=== PATIENT | female | born 1935 | race Caucasian/White ===

== ENCOUNTER 2016-09-03 15:00 | Inpatient (IN) ==
[2016-09-03 17:15] LABS: Appearance,Urine CLOUDY; Bilirubin,Urine NEG (NEG); Color,Urine YELLOW; Glucose,Urine (UA) NEGATIVE (NEG); Leukocyte Esterase,Urine NEG /uL (NEG); Nitrate,Urine NEG (NEG); Protein,Urine NEG (NEG); Specific Gravity,Urine 1.011 (1.000-1.035); Urine Blood NEG mg/dL (<0.03); Urobilinogen,Urine NEG (NEG)
[2016-09-03 17:30] LABS: Basophils # (Auto) 0.1 K/mcL (0.0-0.3); Basophils % (Auto) 1.2 % (0.0-2.0); Eosinophils # (Auto) 0.1 K/mcL (0.0-0.7); Eosinophils % (Auto) 2.8 % (0.0-7.0); Granulocytes % (Auto) 46.5 % (38.0-78.0); Lymphocytes # (Auto) 1.9 K/mcL (1.5-4.8); Lymphocytes % (Auto) 35.4 % (15.5-49.0); Mean Cell Volume 104.3 fL (80.0-100.0); Mean Corpuscular HGB Conc 32.6 g/dL (31.0-36.0); Monocytes # (Auto) 0.7 K/mcL (0.1-0.9); Monocytes % (Auto) 14.1 % (1.0-9.0); Platelet Count 721 K/mcL (140-440); RBC 3.79 M/mcL (4.00-5.20); Red Cell Distribution Width 13.9 % (11.5-14.5)
[2016-09-03 17:36] LABS: Blood Urea Nitrogen 16 mg/dl (8-23)
[2016-09-07] MEDS ORDERED: CELECOXIB 200 MG CAPSULE PO SCH (05:00)
[2016-09-07] MEDS ORDERED: oxyCODONE 10 MG TAB.ER.12H PO SCH (05:00)
[2016-09-07] MEDS ORDERED: ACETAMINOPHEN 500 MG TABLET PO SCH (05:00)
[2016-09-07] MEDS ORDERED: PREGABALIN 150 MG CAPSULE PO SCH (05:00)
[2016-09-07] MEDS ORDERED: KETOROLAC 30 MG, ROPIVACAINE HCL/PF 49.5 ML, EPINEPHrine 0.5 MG, 0.9 % SODIUM CHLORIDE ... IJ SCH (06:30)
[2016-09-07] MEDS: ceFAZolin 1 GM VIAL IV SCH ×3 (12:24→21:38)
[2016-09-07] MEDS ORDERED: TRANEXAMIC ACID 1,000 MG/10 ML VIAL IV ONE ×2 (12:35→14:14)
[2016-09-07] MEDS ORDERED: PROPOFOL 200 MG/20 ML VIAL IV ONE (12:35)
[2016-09-07] MEDS ORDERED: MIDAZOLAM 5 MG/5 ML VIAL IV ONE (12:35)
[2016-09-07] MEDS ORDERED: LIDOCAINE HCL/PF 100 MG/5 ML SYRINGE IV ONE (12:35)
[2016-09-07] MEDS ORDERED: DEXAMETHASONE 10 MG/ML VIAL IV ONE (12:35)
[2016-09-07] MEDS ORDERED: ROPIVACAINE HCL/PF 30 ML VIAL IJ ONE (12:35)
[2016-09-07] MEDS ORDERED: PHENYLEPHRINE 10 MG/ML VIAL IV ONE (12:35)
[2016-09-07] MEDS ORDERED: ONDANSETRON 4 MG/2 ML VIAL IV ONE (12:35)
[2016-09-07] MEDS ORDERED: ePHEDrine 50 MG/ML AMPUL IV ONE (12:35)
[2016-09-07] MEDS ORDERED: GLYCOPYRROLATE 0.2 MG/ML VIAL IV ONE (12:35)
[2016-09-07] MEDS ORDERED: GENTAMICIN SULFATE 800 MG/20 ML VIAL IR ONE (13:05)
[2016-09-07] MEDS ORDERED: METHOCARBAMOL 1,000 MG/10 ML VIAL IV PRN (13:48)
[2016-09-07] MEDS ORDERED: METOPROLOL TARTRATE 5 MG/5 ML VIAL IV PRN (13:48)
[2016-09-07] MEDS ORDERED: diphenhydrAMINE 50 MG/ML VIAL IV PRN (13:48)
[2016-09-07] MEDS ORDERED: NALOXONE HCL 0.4 MG/ML VIAL IV PRN (13:48)
[2016-09-07] MEDS ORDERED: ePHEDrine 50 MG/ML AMPUL IV PRN (13:48)
[2016-09-07] MEDS ORDERED: ATROPINE SULFATE 0.4 MG/ML VIAL IV PRN (13:48)
[2016-09-07] MEDS ORDERED: fentaNYL 100 MCG/2 ML VIAL IV PRN (13:48)
[2016-09-07] MEDS ORDERED: FLUMAZENIL 0.1 MG/ML ML IV PRN (13:48)
[2016-09-07] MEDS ORDERED: HYDROmorphone 2 MG/ML SYRINGE IV PRN ×2 (13:48→14:14)
[2016-09-07] MEDS ORDERED: ONDANSETRON 4 MG/2 ML VIAL IV PRN ×2 (13:48→14:14)
[2016-09-07] MEDS ORDERED: BENZOCAINE/MENTHOL 1 LOZENGE PO PRN ×2 (13:48→14:14)
[2016-09-07] MEDS ORDERED: IPRATROPIUM/ALBUTEROL 3 ML AMPUL.NEB NEB PRN (13:48)
[2016-09-07] MEDS ORDERED: PROMETHAZINE 25 MG/ML VIAL IV PRN (13:48)
[2016-09-07] MEDS ORDERED: MEPERIDINE 25 MG/ML SYRINGE IV PRN (13:48)
[2016-09-07] MEDS ORDERED: LACTATED RINGERS 1,000 ML IV SCH (14:00)
[2016-09-07] MEDS ORDERED: FLEETS ADULT ENEMA PR PRN (14:14)
[2016-09-07] MEDS ORDERED: TEMAZEPAM 15 MG CAPSULE PO PRN (14:14)
[2016-09-07] MEDS ORDERED: ACETAMINOPHEN 325 MG TABLET PO PRN (14:14)
[2016-09-07] MEDS ORDERED: MAGNESIUM HYDROXIDE 30 ML ORAL.SUSP PO PRN (14:14)
[2016-09-07] MEDS ORDERED: BISACODYL 10 MG SUPP.RECT PR PRN (14:14)
[2016-09-07] MEDS ORDERED: HYDROcodone/APAP 10/325MG TABLET PO PRN (14:14)
[2016-09-07] MEDS ORDERED: POLYETHYLENE GLYCOL 3350 17 GM PACKET PO PRN (14:14)
--- NOTE | 2016-09-07 14:46 | XRay Report ---
CLINICAL INFORMATION: Postsurgical follow-up TECHNIQUE: AP and lateral right knee COMPARISON: None. FINDINGS: Status post right total knee arthroplasty. Femoral and tibial complements. Anatomic. There is extra osseous mass in fact relate adjacent to the tibial complements. There is postsurgical soft tissue and intra-articular gas. IMPRESSION: Status post right total knee arthroplasty. Interpreted and Authenticated by: Darrion Tijerina 09/07/16
--- NOTE | 2016-09-07 14:57 | Operative Note ---
DATE OF OPERATION: 09/07/2016 PREOPERATIVE DIAGNOSIS: Right knee lateral plateau fracture and severe arthritis of the right knee. POSTOPERATIVE DIAGNOSIS: Right knee lateral plateau fracture and severe arthritis of the right knee. PROCEDURE: Right knee hardware removal. Six screws plus the tibial plateau plate with a total knee arthroplasty. SURGEON: Stoney Harding MD. STITCHER HAND: Emanuel Lauren PA-C. ANESTHESIA: General LMA anesthesia. COMPLICATIONS: None. IMPLANTS PLACED: Size 4 femur and size 3 tibial baseplate, cemented components with a 13 mm poly insert with a posterior stabilized design with a 32 mm patellar button. DESCRIPTION OF PROCEDURE: The patient was brought to the operating room and put to sleep with general LMA anesthesia. Once asleep, the patient had the right leg sterilely prepped and draped in the usual sterile fashion. A midline incision was made after confirming the operative site. Preop antibiotics given. Tranexamic acid given. A midline incision was made. We then exposed the joint which showed severe wear of all three compartments and varus malalignment. We irrigated thoroughly. We then made an intramedullary guide efrain into the femur, made our distal femoral cut at 9 mm and made our anterior and posterior chamfer cuts. Once done, we placed a efrain down the tibia and made our proximal tibia cut measured 8 mm below the least involved compartment. Once this was removed, we then removed the hardware laterally, made an incision through the prior scar, exposed the plate and screws. All six screws were removed under power, as well as the tibial plateau plate. We irrigated thoroughly and closed the fascial layer over the plate with #1 Vicryl and 2-0 Vicryl for the skin. The tibia was prepared. We removed the bony fragment from the knee, removed osteophytes posteriorly on the femur and removed the remnants of the meniscus. We punched into place a size 3 tibial baseplate and placed this in external rotation according to the tibial tubercle. We then placed a size 4 femur with the notch cut for posterior stabilized design. We trialed different poly. The poly most appropriate was 13. We balanced the knee both varus valgus and extension and flexion. We then prepared the patella which measured 21 mm. This was cut to 13 mm and a 32 mm button was placed. Chamfer cut made using a reciprocating saw. We then cemented into place the size 4 femur, size 3 tibia using a cement gun. We placed a 13 mm poly and a 32 mm patellar button. Excess cement was removed. We deflated the tourniquet at approximately 52 minutes. After the cement was allowed to dry at 45 degrees, we then inspected the joint once more for any remaining cement. We then closed the capsule of the knee using #2 FiberWire and #1 Vicryl and an 0 double-armed Maxon interlocking stitch was used for the capsular repair. We closed the skin with 2-0 Vicryl and megan superficially on both wounds, placed a sterile bandage. RBH:gerardo Job ID: [id number] Doc ID: [id number] Stoney Harding MD
--- NOTE | 2016-09-07 16:14 | Brief Operative Note ---
Date of procedure: 09/07/16 Pre-op diagnosis: right knee djd with hardware s/p plateau fracture Post-op diagnosis: same Procedure: right tka with hardware removal Grafts/Implants: Yes Anesthesia: GETA Complications: none Complications Description: 09/07/16 16:13 none Surgeon: Stoney Harding Paster Supervisor: Emanuel Lauren Estimated blood loss (cc): 50 Tourniquet Time (Minutes): 52 Specimens Removed/Pathology: none sent Condition: stable Disposition: PACU
[2016-09-07] MEDS: KETOROLAC 15 MG/ML VIAL IV SCH (17:30)
[2016-09-07] MEDS: 0.45 % SODIUM CHLORIDE 1,000 ML IV SCH ×2 (17:36→22:46)
[2016-09-07] MEDS: CALCIUM W/VIT D3 500 MG TABLET PO SCH (20:17)
[2016-09-07] MEDS: oxyCODONE 10 MG TAB.ER.12H PO SCH (20:17)
[2016-09-07] MEDS: DOCUSATE SODIUM 100 MG CAPSULE PO SCH (20:17)
[2016-09-07] MEDS: SENNOSIDES 1 TABLET PO SCH (20:17)
[2016-09-07] MEDS: ATORVASTATIN 20 MG TABLET PO SCH (20:19)
[2016-09-07] MEDS: ASPIRIN 325 MG ENTERIC COATED TABLET PO SCH (20:19)
[2016-09-07] MEDS: 0.9 % SODIUM CHLORIDE 10 ML SYRINGE IV SCH (22:46)
[2016-09-08] MEDS: KETOROLAC 15 MG/ML VIAL IV SCH ×4 (01:13→18:01)
[2016-09-08] MEDS: ceFAZolin 1 GM VIAL IV SCH (04:30)
[2016-09-08] MEDS: 0.9 % SODIUM CHLORIDE 10 ML SYRINGE IV SCH ×3 (05:31→22:28)
[2016-09-08] MEDS: 0.45 % SODIUM CHLORIDE 1,000 ML IV SCH ×2 (05:32→14:26)
--- NOTE | 2016-09-08 07:47 | Orthopedic Progress Note ---
Subjective Patient information: Note initiated : 09/08/16 at 7:46 am Service Date, if different from initiated Date: [] Patient: Roxy Fernando 81 y/o F admitted on 09/07/16 for Right Total Knee Arthroplasty and Hardware Removal. Chief Complaint: [Pt is stable this morning on post operative day 1 without any significant concerns or complaints. Patients vital signs have remained stable. Patients dressing is dry and exhibits a grossly intact neurovascular and neuromotor exam. Patients 10 point ROS is otherwise negative. ] Objective Vital signs: Vital Signs Temp Pulse Pulse Resp BP BP BP 09/08/16 04:00 97.7 F 86 16 101/50 09/08/16 00:00 97.7 F 87 16 94/46 09/07/16 20:00 97.1 F L 94 H 16 99/51 09/07/16 19:44 09/07/16 19:43 09/07/16 17:48 87 16 116/68 09/07/16 17:30 85 100/55 09/07/16 17:15 94 H 102/70 09/07/16 16:51 78 106/64 09/07/16 16:27 09/07/16 16:20 82 16 101/62 09/07/16 16:05 80 102/60 09/07/16 16:00 80 102/60 09/07/16 15:50 84 104/49 09/07/16 15:35 81 99/58 09/07/16 15:20 76 102/57 09/07/16 15:00 97.1 F L 78 16 110/53 81/44 09/07/16 14:45 98.7 F 81 16 95/48 81/44 09/07/16 14:30 98.7 F 80 16 94/47 81/44 09/07/16 14:25 98.7 F 79 16 93/49 81/44 09/07/16 14:20 98.7 F 81 16 86/43 81/44 09/07/16 14:15 98.7 F 90 16 81/44 81/44 09/07/16 10:40 98.1 F 72 16 122/70 Pulse Ox 09/08/16 04:00 91 09/08/16 00:00 92 09/07/16 20:00 94 09/07/16 19:44 92 09/07/16 19:43 92 09/07/16 17:48 95 09/07/16 17:30 97 09/07/16 17:15 96 09/07/16 16:51 87 L 09/07/16 16:27 95 09/07/16 16:20 93 09/07/16 16:05 93 09/07/16 16:00 93 09/07/16 15:50 93 09/07/16 15:35 93 09/07/16 15:20 88 L 09/07/16 15:00 99 09/07/16 14:45 97 09/07/16 14:30 99 09/07/16 14:25 98 09/07/16 14:20 99 09/07/16 14:15 93 09/07/16 10:40 97 Intake and Output 09/07/16 09/08/16 09/08/16 21:59 05:59 13:59 Intake Total 2600 / 2600 350 / 350 Output Total 575 / 575 Balance 2600 / 2600 -225 / -225 Intake: IV 1900 / 1900 Oral 700 / 700 350 / 350 Output: Urine Catheter Amount 575 / 575 Other: Meal Cake Percent of Meal Consumed 100% Feeding Ability Independent # Voids 1 Weight 132 lb 8 oz Intake & Output: Intake & Output 09/07/16 09/08/16 09/08/16 21:59 05:59 13:59 Intake Total 2600 / 2600 350 / 350 Output Total 575 / 575 Balance 2600 / 2600 -225 / -225 Weight 132 lb 8 oz Intake: IV 1900 / 1900 Oral 700 / 700 350 / 350 Output: Urine Catheter Amount 575 / 575 Other: Meal Cake Percent of Meal Consumed 100% Feeding Ability Independent # Voids 1 Incision: Yes healing Incision clean and dry: Yes Dressing: Yes clean, Yes dry Weight bearing status: full Neurological exam IM: Yes motor sensory intact, Yes neurovascular intact Extremities exam IM: Yes Foot pink and warm, Yes neurovascular intact - Labs CBC & BMP: 09/08/16 04:40 09/03/16 15:54 Labs: Orthopedic Labs 09/03/16 15:54 PT 13.7 INR 1.0 APTT 28 09/08/16 09/03/16 04:40 15:54 Hgb 12.9 Hct 33.1 L 39.5 Assessment and Plan (1) Hx of total knee arthroplasty Patient has been educated regarding wound care and dressings, follow up recommendations, and medication use. We will f/u with the patient within 2-3 weeks for wound check. Status: Acute
--- NOTE | 2016-09-08 07:49 | Discharge Summary ---
Ortho Discharge - TKA - Patient Instructions Diet: Regular Diet Activity: activity as tolerated, weight bearing as tolerated Total Knee Protocol: For Total Knee: Start ROM JOANN with stationary bike or rocking chair. Work on gaining full extension of knee. Posterior dislocation precautions provided. Hip abductor strengthening and gait training instructions provided. Apply Cryocuff as instructed. Dressing Care: Aquacel Ag - leave on for 5 days - Problem Maintenance (1) Hx of total knee arthroplasty Status: Acute - Follow Up Plan Follow Up Appointments: Stoney Harding MD [Physician] - 09/22/16 2:20 pm Disposition: Home, Self-Care Prognosis: Good Rehab Potential: Good I certify that the patient requires SNF services: No Overall status at discharge: patient is progressing back to baseline - Orders For Discharge Prescriptions: Aspirin [Ecotrin] 325 mg PO BID #60 tab.ec Docusate Sodium [Colace] 100 mg PO BID #60 capsule oxyCODONE/APAP [Percocet 5-325 mg] 1 - 2 tab PO Q4HP PRN #75 tablet PRN Reason: Pain
[2016-09-08] MEDS: LEVOTHYROXINE 88 MCG TABLET PO SCH (08:12)
[2016-09-08] MEDS: DOCUSATE SODIUM 100 MG CAPSULE PO SCH ×2 (08:12→20:34)
[2016-09-08] MEDS: HYDROXYUREA 500 MG CAPSULE PO SCH (08:12)
[2016-09-08] MEDS: ASPIRIN 325 MG ENTERIC COATED TABLET PO SCH ×2 (08:12→20:34)
[2016-09-08] MEDS: oxyCODONE 10 MG TAB.ER.12H PO SCH ×2 (11:05→21:46)
[2016-09-08] MEDS: oxyCODONE/APAP 5/325MG TABLET PO PRN ×2 (14:00→21:45)
[2016-09-08] MEDS ORDERED: ASPIRIN 81 MG TAB.CHEW CHEWED ONE (14:50)
[2016-09-08] MEDS ORDERED: ASPIRIN 81 MG TAB.CHEW ONE (14:54)
[2016-09-08] MEDS ORDERED: MAG HYDROX/AL HYDROX/SIMETH 30 ML ORAL.SUSP PO PRN (15:03)
[2016-09-08 15:59] LABS: Basophils # (Auto) 0 K/mcL (0.0-0.3); Basophils % (Auto) 0.3 % (0.0-2.0); Eosinophils # (Auto) 0.1 K/mcL (0.0-0.7); Eosinophils % (Auto) 1.1 % (0.0-7.0); Granulocytes % (Auto) 69.5 % (38.0-78.0); Lymphocytes # (Auto) 1.4 K/mcL (1.5-4.8); Lymphocytes % (Auto) 13.9 % (15.5-49.0); Mean Cell Volume 103.7 fL (80.0-100.0); Mean Corpuscular HGB Conc 32.4 g/dL (31.0-36.0); Mean Corpuscular Hemoglobin 33.6 pg (26.0-34.0); Monocytes # (Auto) 1.5 K/mcL (0.1-0.9); Monocytes % (Auto) 15.2 % (1.0-9.0); Platelet Count 532 K/mcL (140-440); RBC 3.16 M/mcL (4.00-5.20)
[2016-09-08 16:15] LABS: Creatine Kinase MB 16.7 ng/ml (0-2.9)
[2016-09-08 16:20] LABS: ALT/SGPT 16 U/l (0-40); Albumin 3.2 gm/dL (3.2-5.2); Albumin/Globulin Ratio 1.5 (1.0-2.3); Alkaline Phosphatase 53 U/L (39-117); Blood Urea Nitrogen 16 mg/dl (8-23)
[2016-09-08] MEDS: CALCIUM W/VIT D3 500 MG TABLET PO SCH (20:33)
[2016-09-08] MEDS: ATORVASTATIN 20 MG TABLET PO SCH (20:34)
[2016-09-08] MEDS: SENNOSIDES 1 TABLET PO SCH (20:34)
[2016-09-09] MEDS: KETOROLAC 15 MG/ML VIAL IV SCH ×3 (00:10→12:14)
[2016-09-09] MEDS: 0.9 % SODIUM CHLORIDE 10 ML SYRINGE IV SCH ×3 (06:35→20:37)
--- NOTE | 2016-09-09 07:44 | Orthopedic Progress Note ---
Subjective Patient information: Note initiated : 09/09/16 at 7:43 am Service Date, if different from initiated Date: [] Patient: Roxy Fernando 81 y/o F admitted on 09/07/16 for Right Total Knee Arthroplasty and Hardware Removal. Chief Complaint: [feels good with no c/o sob but sat at 80% no cp] Objective Vital signs: Vital Signs Temp Pulse Pulse Resp BP Pulse Ox 09/09/16 06:29 98.9 F 16 110/63 90 09/09/16 06:25 81 L 09/09/16 03:32 98.3 F 75 16 96/54 93 09/09/16 00:00 97.9 F 80 18 94/54 90 09/08/16 19:53 98.6 F 86 20 91/50 93 09/08/16 16:00 97.8 F 69 16 93/54 91 09/08/16 12:00 98.2 F 87 16 94/53 92 09/08/16 09:24 70 94 09/08/16 08:03 97.8 F 78 16 82/45 89 L 09/08/16 08:00 98.2 F 81 16 94/53 92 Intake and Output 09/08/16 09/09/16 09/09/16 21:59 05:59 13:59 Intake Total 403 / 403 Output Total 450 / 450 200 / 200 Balance -47 / -47 -200 / -200 Intake: Oral 403 / 403 Output: Void Amount 450 / 450 200 / 200 Other: Meal Dinner Percent of Meal Consumed 100% Feeding Ability Independent Weight 133 lb Intake & Output: Intake & Output 09/08/16 09/09/16 09/09/16 21:59 05:59 13:59 Intake Total 403 / 403 Output Total 450 / 450 200 / 200 Balance -47 / -47 -200 / -200 Weight 133 lb Intake: Oral 403 / 403 Output: Void Amount 450 / 450 200 / 200 Other: Meal Dinner Percent of Meal Consumed 100% Feeding Ability Independent Incision: Yes healing Incision clean and dry: Yes Dressing: Yes clean Weight bearing status: full Neurological exam IM: Yes oriented X3, Yes neurovascular intact Extremities exam IM: Yes Foot pink and warm (consult hospitalist for decrease sat), Yes neurovascular intact - Labs CBC & BMP: 09/08/16 14:55 03/14/17 14:55 Labs: Orthopedic Labs 09/08/16 09/03/16 14:55 15:54 PT 14.1 13.7 INR 1.1 1.0 APTT 28 09/08/16 09/08/16 09/03/16 14:55 04:40 15:54 Hgb 10.6 L 12.9 Hct 32.8 L 33.1 L 39.5
[2016-09-09] MEDS: LEVOTHYROXINE 88 MCG TABLET PO SCH (07:54)
--- NOTE | 2016-09-09 09:04 | XRay Report ---
CLINICAL INFORMATION: Hypoxia TECHNIQUE: AP portable, semiupright chest x-ray COMPARISON: None. FINDINGS: Lungs are negative. No focal pulmonary parenchymal infiltrate or mass. Heart size and vascularity are unremarkable. No pelvic congestion or pulmonary edema. Mojgan and mediastinum are negative. There is a lucency in the left upper abdominal quadrant. This is probably within colon. If this patient is having abdominal pain routine abdominal series should be performed. IMPRESSION: 1. Negative AP chest x-ray. 2. No focal infiltrate or mass. No pulmonary edema. Interpreted and Authenticated by: Darrion Tijerina 09/09/16
[2016-09-09] MEDS: DOCUSATE SODIUM 100 MG CAPSULE PO SCH ×2 (09:18→20:26)
[2016-09-09] MEDS: ASPIRIN 325 MG ENTERIC COATED TABLET PO SCH (09:18)
[2016-09-09] MEDS ORDERED: IOPAMIDOL 100 ML BOTTLE IV ONE (11:22)
--- NOTE | 2016-09-09 11:41 | Cat Scan Report ---
CLINICAL INFORMATION: Status post knee replacement surgery. Hypoxia. COMPARISON: Chest x-ray dated 09/09/2016 TECHNIQUE: Axial images obtained through the chest. 80 mL intravenous contrast administration was administered, and scanning was performed during pulmonary arterial phase. Sagittally and coronally reformatted images were obtained. MIP reformatted images. FINDINGS: Positive examination for deep venous thrombosis. There is thrombus extending into left lower lobe segmental branches and the lingular branch. Main pulmonary artery, right pulmonary artery, left pulmonary artery are negative. No right-sided emboli. Clot load is relatively small. The patient's nurse was notified of these results, 09/09/2016, 11:30. No parenchymal mass or infiltrate. No evidence for pulmonary infarction. There is mild dependent atelectasis and minimal pleural fluid bilaterally. There is mild cardiomegaly. No pericardial fluid. No hilar or mediastinal adenopathy. No axillary adenopathy. IMPRESSION: 1. Positive pulmonary CTA. Intraluminal emboli within the left lower lobe and lingular branches. 2. Mild dependent atelectasis and very small effusions 3. No pulmonary consolidation or evidence for pulmonary infarction. Interpreted and Authenticated by: Darrion Tijerina 09/09/16
[2016-09-09] MEDS: APIXABAN 5 MG TABLET PO SCH ×2 (13:20→20:25)
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
[2016-09-09] MEDS: ATORVASTATIN 20 MG TABLET PO SCH (20:21)
[2016-09-09] MEDS: SENNOSIDES 1 TABLET PO SCH (20:24)
[2016-09-09] MEDS: CALCIUM W/VIT D3 500 MG TABLET PO SCH (20:36)
[2016-09-10] MEDS: oxyCODONE/APAP 5/325MG TABLET PO PRN ×3 (03:33→13:41)
[2016-09-10] MEDS: 0.9 % SODIUM CHLORIDE 10 ML SYRINGE IV SCH (06:00)
[2016-09-10] MEDS: LEVOTHYROXINE 88 MCG TABLET PO SCH (07:40)
[2016-09-10] MEDS: HYDROXYUREA 500 MG CAPSULE PO SCH (10:37)
[2016-09-10] MEDS: APIXABAN 5 MG TABLET PO SCH (10:37)
[2016-09-10] MEDS: DOCUSATE SODIUM 100 MG CAPSULE PO SCH (10:37)
--- NOTE | 2016-09-10 10:59 | Discharge Summary ---
Medical - DS: Prov Patient information: Note initiated : 09/10/16 at 10:54 am Service Date, if different from initiated Date: [] Patient: Roxy Fernando 81 y/o F admitted on 09/07/16 for Right Total Knee Arthroplasty and Hardware Removal. Chief Complaint: [] Date of admission: 09/07/16 10:15 Discharge date: 09/10/16 Primary care physician: [f_Reg Prim Care Provider] Admitting clinician: Stoney Harding Consults: 09/09/16 07:20 Consult to Physician [CONS] Routine Comment: Consulting Provider: Judie Duke Reason For Exam: Physician to Consult Discharging clinician: Judie Duke Medical - DS: Meds - Discharge Medications Prescriptions: Apixaban [Eliquis] 10 mg PO BID #11 tablet Apixaban [Eliquis] 5 mg PO BID #60 tablet Docusate Sodium [Colace] 100 mg PO BID #60 capsule oxyCODONE/APAP [Percocet 5-325 mg] 1 - 2 tab PO Q4HP PRN #75 tablet PRN Reason: Pain Active and Home Medications: Home Medications Atorvastatin [Lipitor] 10 mg PO DAILY 09/03/16 [History Confirmed 09/07/16 Last Taken 09/06/16] Calcium Carbonate/Vitamin D3 [Calcium 600 + Vit D Softgel] 2 each PO HS [History Confirmed 09/07/16 Last Taken 09/05/16] Hydroxyurea [Hydrea] 500 mg PO MOTUTHFRSA@0900 09/03/16 [History Confirmed 09/07 Last Taken 09/05/16] Levothyroxine [Synthroid] 88 mcg PO QAMAC 09/03/16 [History Confirmed 09/07/16 Last Taken 09/06/16] Aspirin [Ecotrin] 325 mg PO BID #60 tab.ec 09/08/16 [Rx Last Taken Unknown] Docusate Sodium [Colace] 100 mg PO BID #60 capsule 09/08/16 [Rx Last Taken Unknown] oxyCODONE/APAP [Percocet 5-325 mg] 1 - 2 tab PO Q4HP PRN #75 tablet 09/08/16 [ Rx Last Taken Unknown] Medical - DS: Hosp Hospital course: Mrs. Fernando is a 81 year old female who was admitted to this facility for a TKA. The patient had a right TKA with hardware removal by Dr Harding on the of this month. The patient was doing well in the post op period when on Day 2 she had some hypoxia and medicine was consulted for further evaluation. The patient X ray chest was noted to be negative. HEr labs unremarkable. the patient underwent a CT angio chest which showed a Pulmonary embolus on the left side. The patient was placed on eliquis for management of acute pe. She will need to be on 10mg twice daily for total of 7 days, She would have received 3 doses of 14 here, she will be discharged on additional 11 pills to complete her initial course. The patient will then need to be on eliquis 5mg twice daily for 6 months. 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 Should she suffer from another PE in the future, she will need lifelong anticoagulation. If the patients insurance company denies use of eliquis, she can be switched over to coumarin or any other appropriate drug at the discretion of the primary care provider. The patient on discharge is doing well, needs 1-1.5 L oxygen to maintain her oxygen levels, is tolerating PO well, Will be discharged to snf for rehab. Discharge diagnosis: Knee replacement/ Pulmonary embolism. - Time Spent with Patient Total time spent providing and/or coordinating discharge services: Greater than 30 minutes Medical - DS: Exam - Constitutional Vitals: Vital Signs Temp Pulse Pulse Pulse Resp BP BP 09/10/16 08:00 97.6 F 90 90 16 92/60 09/10/16 04:00 97.9 F 99 H 24 108/68 09/09/16 23:54 97.8 F 104 H 24 99/59 09/09/16 20:00 98.5 F 94 H 24 123/73 09/09/16 17:57 97 H 22 09/09/16 15:55 98.0 F 20 117/72 09/09/16 11:56 98.7 F 20 129/74 Pulse Ox 09/10/16 08:00 92 09/10/16 04:00 91 09/09/16 23:54 91 09/09/16 20:00 92 09/09/16 17:57 79 L 09/09/16 15:55 91 09/09/16 11:56 93 Intake and Output 09/09/16 09/10/16 09/10/16 21:59 05:59 13:59 Intake Total 840 / 840 250 / 250 Output Total 1303 / 1303 651 / 651 Balance -463 / -463 -401 / -401 Intake: Oral 840 / 840 250 / 250 Output: Void Amount 1300 / 1300 650 / 650 # of times incontinent of 3 / 3 urine Other: Meal Dinner Percent of Meal Consumed 25% # Voids 2 Weight 134 lb Additional comments: Constitutional; Afebrile, cooperative, alert, not in distress. Eyes- No icterus, Pupils equal, reactive, No periorbital swelling Ears- Ext ear normal, hearing normal to conversation. Neck- Midline trachea, supple Respiratory system: Air Entry equal on both sides, No crackles or wheezing, no rhonchi. CVS- Rate rhythm regular, S1,S2 heard, no gallop, no rub. Abdomen- Soft nontender abdomen, no organomegaly, no tenderness, no guarding or rigidity, [employer]- AOOx3, moving all extremities, no focal deficit noted. Medical - DS: A/P - Patient/Caregiver Discharge Instructions Activity: as per physical therapy, increase activity as tolerated Diet: Regular Diet Additional Instructions: Aquacel Ag dressing to stay in place 3-5 days then remove. If dressing becomes soiled (turns dark), remove and use 4x4 gauze and silvasorb ointment and change daily. Keep incision clean and dry. May shower post-op day 3. Use over the counter stool softeners or laxatives to avoid constipation associated with narcotic use. Use elevation of extremity and ice to help with pain and swelling. Call your physician for fever greater than 100.5 or pain not controlled by medication. If any non narcotic prescriptions are ordered they were electronically sent to pharmacy Take eliquis 10mg bid for total of 7 days, (already given 3 doses here ) Then take eliquis 5mg bid for another 6 months. Wean off Oxygen as tolerated, Goal Oxygen saturations > 90% Prescriptions: Apixaban [Eliquis] 10 mg PO BID #11 tablet Apixaban [Eliquis] 5 mg PO BID #60 tablet Docusate Sodium [Colace] 100 mg PO BID #60 capsule oxyCODONE/APAP [Percocet 5-325 mg] 1 - 2 tab PO Q4HP PRN #75 tablet PRN Reason: Pain Other Amb Orders: Physical Therapy at Discharge - TKA Location: Determined By Patient CPM Discharge Order Location: Determined By Patient Toilet Riser Discharge Order Location: Determined By Patient Walker Location: Determined By Patient - Problem Maintenance (1) Acute pulmonary embolism Status: Acute (2) Acute respiratory failure with hypoxia Status: Acute - Follow up Plan Follow up with: Stoney Harding MD [Physician] - 09/22/16 2:20 pm () Disposition: [facility] Swing Bed Prognosis: Good Rehab Potential: Good I certify that the patient requires SNF services: Yes Overall status at discharge: patient is progressing back to baseline Medical - DS: Qual - VTE Deep Vein Thrombosis/Pulmonary Embolism Present on Admission: No
== END 2016-09-10 14:00 | disposition other institution (70) | DRG 469 ==
LOC: MEDSUR 09-07 10:15
PROVIDERS: ADMIT Orthopaedic Surgery; ATTEND Internal Medicine